=== PATIENT | female | born 1990 | race Caucasian/White ===

== ENCOUNTER 2022-07-05 20:47 | Emergency (ER) | payer MEDICAID ==
[~2022-07-05] VITALS: Ht 162.6 cm; Wt 149.7 kg
[2022-07-05] MEDS ORDERED: morphine INJ 10 MG/ML 1ML (SYR OR VIAL) IVP STA (21:10)
--- NOTE | 2022-07-05 21:11 | ED Cardiac General ---
History of Present Illness General Chief Complaint: Chest Pain Stated Complaint: CHEST TIGHTNESS Source: patient Exam Limitations: no limitations (YADIRA ARBOLEDA APRN) History of Present Illness Date Seen by Provider: Jul 05, 2022 Time Seen by Provider: 21:10 Initial Comments This is a 32-year-old female with a history of hypertension, obesity who presented to the ER with complaints of chest pressure since this morning. Recently moved to [facility] from [place] 3 weeks ago, has yet to establish with PCP. Has never felt this type of pain before. Describes as pressure in the middle of chest, no exacerbating or alleviating factors. (YADIRA ARBOLEDA APRN) Allergies and Home Medications Allergies Coded Allergies: No Known Drug Allergies (Unverified , 07/05/22) Patient Home Medication List Home Medication List Reviewed: Yes (YADIRA ARBOLEDA APRN) Famotidine (Pepcid) 20 Mg Tablet, 20 MG PO DAILY Prescribed by: YADIRA ARBOLEDA on 07/05/22 828 Review of Systems Review of Systems Constitutional: see HPI (YADIRA ARBOLEDA APRN) Past Jphrenh-Ciuxus-Zefvuj Hx Patient Social History Tobacco Use?: No Use of E-Cig and/or Vaping dev: No Substance use?: No Alcohol Use?: No (YADIRA ARBOLEDA APRN) Immunizations Up To Date Influenza Vaccine Up-to-Date: Yes; Up-to-Date First/Initial COVID19 Vaccinat: 2020 Second COVID19 Vaccination Mauro: 2020 Third COVID19 Vaccination Date: 2021 COVID19 Vaccine [employer]: MODERNA X5 (YADIRA ARBOLEDA APRN) Past Medical History Surgery/Hospitalization HX: GASTRIC BYPASS 01/2022, ESTUARDO (YADIRA ARBOLEDA APRN) Physical Exam Vital Signs Capillary Refill : Less Than 3 Seconds (YADIRA ARBOLEDA APRN) Height, Weight, BMI Height: '" Weight: lbs. oz. kg; BMI Method: General Appearance: No Apparent Distress, WD/WN HEENT: PERRL/EOMI, TMs Normal, Normal ENT Inspection, Pharynx Normal Neck: Full Range of Motion, Normal Inspection Respiratory: Lungs Clear, Normal Breath Sounds, No Accessory Muscle Use, No Respiratory Distress Cardiovascular: Regular Rate, Rhythm, No Murmur Gastrointestinal: Normal Bowel Sounds, Non Tender, Soft Rectal: Normal Exam Extremity: Normal Capillary Refill, Normal Inspection, Normal Range of Motion Neurologic/Psychiatric: Alert, Oriented x3, No Motor/Sensory Deficits, Normal Mood/Affect, acid tank liner II-XII Norm as Tested Skin: Normal Color, Warm/Dry (YADIRA ARBOLEDA APRN) Progress/Results/Core Measures Results/Orders Lab Results Laboratory Tests Test 07/05/22 20:57 Range/Units White Blood Count 6.5 4.3-11.0 10^3/uL Red Blood Count 4.45 3.80-5.11 10^6/uL Hemoglobin 13.2 11.5-16.0 g/dL Hematocrit 41 35-52 % Mean Corpuscular Volume 93 80-99 fL Mean Corpuscular Hemoglobin 30 25-34 pg Mean Corpuscular Hemoglobin Concent 32 32-36 g/dL Red Cell Distribution Width 13.9 10.0-14.5 % Platelet Count 331 130-400 10^3/uL Mean Platelet Volume 10.6 9.0-12.2 fL Immature Granulocyte % (Auto) 0 % Neutrophils (%) (Auto) 66 42-75 % Lymphocytes (%) (Auto) 24 12-44 % Monocytes (%) (Auto) 8 0-12 % Eosinophils (%) (Auto) 1 0-10 % Basophils (%) (Auto) 1 0-10 % Neutrophils # (Auto) 4.3 1.8-7.8 10^3/uL Lymphocytes # (Auto) 1.6 1.0-4.0 10^3/uL Monocytes # (Auto) 0.5 0.0-1.0 10^3/uL Eosinophils # (Auto) 0.1 0.0-0.3 10^3/uL Basophils # (Auto) 0.0 0.0-0.1 10^3/uL Immature Granulocyte # (Auto) 0.0 0.0-0.1 10^3/uL Prothrombin Time 13.5 12.2-14.7 SEC INR Comment 1.0 0.8-1.4 Activated Partial Thromboplast Time 29 24-35 SEC D-Dimer 0.79 H 0.00-0.49 UG/ML Sodium Level 143 135-145 MMOL/L Potassium Level 3.4 L 3.6-5.0 MMOL/L Chloride Level 108 H 98-107 MMOL/L Carbon Dioxide Level 25 21-32 MMOL/L Anion Gap 10 5-14 MMOL/L Blood Urea Nitrogen 10 7-18 MG/DL Creatinine 0.68 0.60-1.30 MG/DL Estimat Glomerular Filtration Rate 117 BUN/Creatinine Ratio 15 Glucose Level 98 70-105 MG/DL Calcium Level 9.2 8.5-10.1 MG/DL Corrected Calcium 9.1 8.5-10.1 MG/DL Magnesium Level 2.1 1.6-2.4 MG/DL Total Bilirubin 0.4 0.1-1.0 MG/DL Aspartate Amino Transf (AST/SGOT) 18 5-34 U/L Alanine Aminotransferase (ALT/SGPT) 19 0-55 U/L Alkaline Phosphatase 76 40-136 U/L Total Creatine Kinase 43 29-168 U/L Creatine Kinase MB 0.7 <6.6 NG/ML Myoglobin 27.8 10.0-92.0 NG/ML Troponin I < 0.028 <0.028 NG/ML B-Type Natriuretic Peptide 33.0 <100.0 PG/ML Total Protein 7.6 6.4-8.2 GM/DL Albumin 4.1 3.2-4.5 GM/DL Lipase 23 8-78 U/L (AMELIA ELENA MD) Progress Progress Note : Progress Note Labs reviewed CBC is grossly unremarkable, chemistry relatively unremarkable, noted to have a potassium of 3.4 and a chloride of 108. CK, CK-MB, myoglobin, troponin all within normal limits. BNP 33. D-dimer is somewhat elevated at 0.79. Imaging reviewed her chest x-ray is negative. CT angio ordered due to elevated D-dimer and complaints of chest pain. CT angio negative for PE, acute aortic pathology, focal infiltrate or pleural fluid. She was given GI cocktail and had almost immediate improvement of her symptoms. Discharge plan of care reviewed and she is agreeable with plan. (YADIRA ARBOLEDA [employer] WORKERS SUPERVISOR) Initial ECG Impression Date: Jul 05, 2022 Initial ECG Impression Time: 20:58 Initial ECG Rate: 61 Initial ECG Rhythm: Normal Sinus Initial ECG Intervals SA Initial ECG Impression: Nonspecific Changes (YADIRA ARBOLEDA APRN) Diagnostic Imaging Diagonstic Imaging: Xray Comments [facility], [place] NAME: EDWAR GASPAR [facility] REC#: [id number] PT STATUS: REG ER : 1990 PHYSICIAN: YADIRA ARBOLEDA [employer] WORK[employer] SUPERVISOR ADMIT DATE: 07/05/22/ER Signed Date of Exam:07/05/22 CHEST 1 VIEW, AP/PA ONLY INDICATION: Chest pain Frontal chest obtained at 09:12 p.m. The study is limited by very poor inspiration. There is no focal infiltrate, pneumothorax or pleural fluid. Heart and mediastinal silhouette are unremarkable for a portable view. IMPRESSION: Negative chest. Dictated by: Dictated on workstation # [id number] Dict: 07/05/222126 Trans: 07/05/222144 [facility] [id number] Interpreted by: DAVIAN DIAZ MD Electronically signed by: DAVIAN DIAZ MD 07/05/222144 Diagonstic Imaging: CT Comments [facility], [place] NAME: EDWAR GASPAR [facility] REC#: [id number] PT STATUS: REG ER : 1990 PHYSICIAN: YADIRA ARBOLEDA [employer] WORK[employer] SUPERVISOR ADMIT DATE: 07/05/22/ER Signed Date of Exam:07/05/22 CT ANGIO CHEST W INDICATION: Chest heaviness, elevated D-dimer, shortness of breath TECHNIQUE: Multiple contiguous axial images were obtained through the chest after uneventful bolus administration of intravenous contrast. 3D reconstructed CTA MIP acquisitions were also performed. Auto Exposure Controls were utilized during the CT exam to meet ALARA standards for radiation dose reduction. COMPARISON: There is no previous study for comparison There is thyromegaly incidentally noted. The thoracic aorta shows no evidence of aneurysm or dissection. Great vessel origins are unremarkable. The pulmonary parenchymal vessels appear well opacified with no CT evidence of pulmonary emboli. There is no mediastinal or hilar adenopathy. There are no enlarged axillary nodes or chest wall lesions. There is no pleural or pericardial fluid. Visualized portions of the upper abdomen demonstrate a small cyst in the left kidney. There are postoperative changes in the stomach. Lung parenchymal windows demonstrated no evidence of pulmonary infiltrate or nodule. IMPRESSION: No CT evidence pulmonary emboli or acute aortic pathology. No focal infiltrate or pleural fluid. Incidental thyromegaly. There are postoperative changes in the stomach. Dictated by: Dictated on workstation # [id number] Dict: 07/05/222152 Trans: 07/05/222213 [facility] [id number] Interpreted by: DAVIAN DIAZ MD Electronically signed by: DAVIAN DIAZ MD 07/05/222213 (YADIRA ARBOLEDA [employer] WORK[employer] SUPERVISOR) Departure Impression Primary Impression: Non-cardiac chest pain Disposition: HOME, SELF-CARE Condition: Improved Departure-Patient Inst. Decision time for Depature: 22:10 (YADIRA ARBOLEDA [employer] WORK[employer] SUPERVISOR) Referrals: NO,LOCAL PHYSICIAN (PCP/Family) Primary Care Physician Patient Instructions: LOCAL PHYSICIAN LIST Add. Discharge Instructions: Plan: 1. Establish with primary care provider of your choice, you have been given a list of local physicians. You can call to see if they are accepting new patients. 2. Return to the ER for any new, concerning, worsening symptoms. All discharge instructions reviewed with patient and/or family. Voiced understanding. Scripts Famotidine (Pepcid) 20 Mg Tablet 20 MG PO DAILY for 30 Days, #30 TAB 0 Refills Prov: YADIRA ARBOLEDA APRN 07/05/22 ATTENDING PHYSICIAN NOTE: I was physically present as attending physician in the emergency department during the care of this patient, but I was not directly involved in the decision making or delivery of care for this patient. (AMELIA ELENA MD) YADIRA ARBOLEDA APRN Jul 05, 2022 21:11 AMELIA ELENA MD Jul 16, 2022 06:32
[2022-07-05 21:15] LABS: BASOPHILS % (AUTO) 1 % (0-10); EOSINOPHILS # (AUTO) 0.1 10^3/uL (0.0-0.3); EOSINOPHILS % (AUTO) 1 % (0-10); HEMATOCRIT 41 % (35-52); HEMOGLOBIN 13.2 g/dL (11.5-16.0); LYMPHOCYTES # (AUTO) 1.6 10^3/uL (1.0-4.0); LYMPHOCYTES % (AUTO) 24 % (12-44); MEAN CORPUSCULAR HEMOGLOBIN 30 pg (25-34); MEAN CORPUSCULAR HGB CONC 32 g/dL (32-36); MEAN CORPUSCULAR VOLUME 93 fL (80-99); MEAN PLATELET VOLUME 10.6 fL (9.0-12.2); MONOCYTES # (AUTO) 0.5 10^3/uL (0.0-1.0); MONOCYTES % (AUTO) 8 % (0-12); NEUTROPHILS # (AUTO) 4.3 10^3/uL (1.8-7.8); NEUTROPHILS % (AUTO) 66 % (42-75); PLATELET COUNT 331 10^3/uL (130-400); WHITE BLOOD COUNT 6.5 10^3/uL (4.3-11.0)
[2022-07-05 21:21] LABS: PROTHROMBIN TIME PATIENT 13.5 SEC (12.2-14.7)
[2022-07-05 21:26] LABS: ALBUMIN 4.1 GM/DL (3.2-4.5)
[2022-07-05 21:27] LABS: POTASSIUM 3.4 MMOL/L (3.6-5.0)
[2022-07-05 21:28] LABS: CALCIUM 9.2 MG/DL (8.5-10.1)
[2022-07-05 21:29] LABS: TOTAL PROTEIN 7.6 GM/DL (6.4-8.2)
[2022-07-05 21:31] LABS: BILIRUBIN,TOTAL 0.4 MG/DL (0.1-1.0)
[2022-07-05 21:33] LABS: CREATININE SERUM 0.68 MG/DL (0.60-1.30)
--- NOTE | 2022-07-05 21:34 | Diagnostic Imaging Report ---
INDICATION: Chest pain Frontal chest obtained at 09:12 p.m. The study is limited by very poor inspiration. There is no focal infiltrate, pneumothorax or pleural fluid. Heart and mediastinal silhouette are unremarkable for a portable view. IMPRESSION: Negative chest. Dictated by: Dictated on workstation # [id number]
[2022-07-05 21:36] LABS: MAGNESIUM 2.1 MG/DL (1.6-2.4)
[2022-07-05 21:43] LABS: CREATINE KINASE MB 0.7 NG/ML (<6.6)
--- NOTE | 2022-07-05 21:58 | Diagnostic Imaging Report ---
INDICATION: Chest heaviness, elevated D-dimer, shortness of breath TECHNIQUE: Multiple contiguous axial images were obtained through the chest after uneventful bolus administration of intravenous contrast. 3D reconstructed CTA MIP acquisitions were also performed. Auto Exposure Controls were utilized during the CT exam to meet ALARA standards for radiation dose reduction. COMPARISON: There is no previous study for comparison There is thyromegaly incidentally noted. The thoracic aorta shows no evidence of aneurysm or dissection. Great vessel origins are unremarkable. The pulmonary parenchymal vessels appear well opacified with no CT evidence of pulmonary emboli. There is no mediastinal or hilar adenopathy. There are no enlarged axillary nodes or chest wall lesions. There is no pleural or pericardial fluid. Visualized portions of the upper abdomen demonstrate a small cyst in the left kidney. There are postoperative changes in the stomach. Lung parenchymal windows demonstrated no evidence of pulmonary infiltrate or nodule. IMPRESSION: No CT evidence pulmonary emboli or acute aortic pathology. No focal infiltrate or pleural fluid. Incidental thyromegaly. There are postoperative changes in the stomach. Dictated by: Dictated on workstation # [id number]
[2022-07-05] MEDS ORDERED: IOHEXOL 350 MG/ML 100 ML (OMNIPAQUE 350) VIAL IV ONE (22:00)
[2022-07-05] MEDS ORDERED: NS 100 ML (IVPB) BAG IV ONE (22:00)
[2022-07-05] MEDS ORDERED: LIDOCAINE 2% VISCOUS 15 ML UDC PO ONE (22:15)
[2022-07-05] MEDS ORDERED: ANTACID SUSP 30 ML UDC (MYLANTA) PO ONE (22:15)
[2022-07-05 22:50] VITALS: BP 125/78
[2022-07-05] MEDS ORDERED: FAMO-119 PO (22:52)
== END 2022-07-05 22:50 | disposition home or self-care (01) ==
LOC: ER 20:50
DX: R07.89 Other chest pain (principal); E66.9 Obesity, unspecified; Z68.43 Body mass index [BMI] 50.0-59.9, adult
CPT/HCPCS: 36415; 71045; 71275; 80053; 82550; 82553; 83690; 83735; 83874; 83880; 84484; 85025; 85379; 85610; 85730; 93005; 93041; 96374

== ENCOUNTER 2022-12-29 22:31 | Emergency (ER) | payer BC ==
[~2022-12-29] VITALS: Ht 162.5 cm; Wt 140.9 kg
[~2022-12-29 22:31] MED LIST: FAMO-119 PO
--- NOTE | 2022-12-29 23:17 | ED General ---
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 Had palpitations during that time. Has never occurred before. Nothing really seemed to make better or worse. Feeling closer to baseline now. No prior cardiac history. Allergies and Home Medications Allergies Coded Allergies: No Known Drug Allergies (Unverified , 07/05/22) Patient Home Medication List Home Medication List Reviewed: Yes Famotidine (Pepcid) 20 Mg Tablet, 20 MG PO DAILY Prescribed by: YADIRA ARBOLEDA on 07/05/22 298 Review of Systems Review of Systems Constitutional: No fever EENTM: no symptoms reported Respiratory: no symptoms reported Cardiovascular: see HPI Gastrointestinal: no symptoms reported Genitourinary: no symptoms reported Musculoskeletal: no symptoms reported Skin: no symptoms reported Psychiatric/Neurological: See HPI Past Ozynjdw-Qodgkb-Yloilk Hx Patient Social History Tobacco Use?: No Substance use?: No Alcohol Use?: No Immunizations Up To Date First/Initial COVID19 Vaccinat: 2020 Second COVID19 Vaccination Mauro: 2020 Third COVID19 Vaccination Date: 2021 Past Medical History Surgery/Hospitalization HX: GASTRIC BYPASS 01/2022, ESTUARDO, anxiety, htn Physical Exam Vital Signs Vital Signs - First Documented 12/29/22 23:00 Temp 35.6 Pulse 64 Resp 16 B/P (MAP) 136/75 (95) Pulse Ox 100 Capillary Refill : Less Than 3 Seconds Height, Weight, BMI Height: '" Weight: lbs. oz. kg; 53.00 BMI Method: General Appearance: No Apparent Distress, WD/WN Eyes: Bilateral Eye Normal Inspection HEENT: PERRL/EOMI, Normal ENT Inspection, Pharynx Normal Neck: Full Range of Motion, Normal Inspection, Non Tender, Supple Respiratory: Chest Non Tender, Lungs Clear, Normal Breath Sounds, No Accessory Muscle Use, No Respiratory Distress Cardiovascular: Regular Rate, Rhythm, No Edema, Normal Peripheral Pulses Gastrointestinal: Normal Bowel Sounds, Non Tender, Soft; No Distended, No Guarding Back: Normal Inspection, No CVA Tenderness Extremity: Normal Capillary Refill, Normal Inspection, Normal Range of Motion, Non Tender, No Calf Tenderness, No Pedal Edema Neurologic/Psychiatric: Alert, No Motor/Sensory Deficits, Normal Mood/Affect Skin: Normal Color, Warm/Dry Progress/Results/Core Measures Suspected Sepsis SIRS Temperature: Pulse: 64 Respiratory Rate: 16 Laboratory Tests 12/29/22 23:30: White Blood Count 9.3 Blood Pressure 136 /75 Mean: 95 Laboratory Tests 12/29/22 23:30: Creatinine 0.69, Platelet Count 308, Total Bilirubin 0.3 Results/Orders Lab Results Laboratory Tests Test 12/29/22 23:30 Range/Units White Blood Count 9.3 4.3-11.0 10^3/uL Red Blood Count 4.11 3.80-5.11 10^6/uL Hemoglobin 12.0 11.5-16.0 g/dL Hematocrit 39 35-52 % Mean Corpuscular Volume 95 80-99 fL Mean Corpuscular Hemoglobin 29 25-34 pg Mean Corpuscular Hemoglobin Concent 31 L 32-36 g/dL Red Cell Distribution Width 13.6 10.0-14.5 % Platelet Count 308 130-400 10^3/uL Mean Platelet Volume 10.3 9.0-12.2 fL Immature Granulocyte % (Auto) 0 % Neutrophils (%) (Auto) 78 H 42-75 % Lymphocytes (%) (Auto) 13 12-44 % Monocytes (%) (Auto) 8 0-12 % Eosinophils (%) (Auto) 1 0-10 % Basophils (%) (Auto) 0 0-10 % Neutrophils # (Auto) 7.2 1.8-7.8 10^3/uL Lymphocytes # (Auto) 1.2 1.0-4.0 10^3/uL Monocytes # (Auto) 0.7 0.0-1.0 10^3/uL Eosinophils # (Auto) 0.1 0.0-0.3 10^3/uL Basophils # (Auto) 0.0 0.0-0.1 10^3/uL Immature Granulocyte # (Auto) 0.0 0.0-0.1 10^3/uL Sodium Level 142 135-145 MMOL/L Potassium Level 3.7 3.6-5.0 MMOL/L Chloride Level 108 H 98-107 MMOL/L Carbon Dioxide Level 23 21-32 MMOL/L Anion Gap 11 5-14 MMOL/L Blood Urea Nitrogen 19 H 7-18 MG/DL Creatinine 0.69 0.60-1.30 MG/DL Estimat Glomerular Filtration Rate 117 BUN/Creatinine Ratio 28 Glucose Level 78 70-105 MG/DL Calcium Level 8.9 8.5-10.1 MG/DL Corrected Calcium 8.8 8.5-10.1 MG/DL Magnesium Level 2.2 1.6-2.4 MG/DL Total Bilirubin 0.3 0.1-1.0 MG/DL Aspartate Amino Transf (AST/SGOT) 17 5-34 U/L Alanine Aminotransferase (ALT/SGPT) 21 0-55 U/L Alkaline Phosphatase 101 40-136 U/L Troponin I < 0.028 <0.028 NG/ML Total Protein 7.7 6.4-8.2 GM/DL Albumin 4.1 3.2-4.5 GM/DL My Orders Orders - KARELY MALLOY MD Cbc With Automated Diff (12/29/22 23:17) Comprehensive Metabolic Panel (12/29/22 23:17) Magnesium (12/29/22 23:17) Troponin I Moca (12/29/22 23:17) Chest 1 View, Ap/Pa Only (12/29/22 23:17) Ed Iv/Invasive Line Start (12/29/22 23:17) Ekg Tracing (12/29/22 23:17) Monitor-Rhythm Ecg Trace Only (12/29/22 23:17) Vital Signs/I&O 12/29/22 23:00 Temp 35.6 Pulse 64 Resp 16 B/P (MAP) 136/75 (95) Pulse Ox 100 Capillary Refill : Less Than 3 Seconds Blood Pressure Mean: 95 Progress Note : Progress Note 32-year-old female coming in due to palpitations essentially and feeling odd earlier in the day. ABCs were intact and vitals were stable on presentation. The patient was placed on the monitor immediately, and did have frequent PVCs. She is able to feel each one of them even without looking on the monitor in the correlate 100% with the PVCs that I am visualizing. The burden is just a couple per minute, not enough to need any intervention emergently at this time. EKG ordered and interpreted by me showing no acute ischemic changes. An IV was placed and basic labs were obtained, mostly to assess her electrolytes. Potassium was 3.7 here, technically normal, but was online services manager would recommend greater than 4. She will be given 40 mill equivalents of potassium oral here. Magnesium is normal, creatinine normal, normal hemoglobin, negative troponin which is expected. Chest x-ray ordered and interpreted by me showing no pneumothorax, normal cardiac silhouette, overall appears similar to prior. Overall she is well-appearing and I believe stable for discharge with outpatient follow-up. Likely this is symptomatic PVCs. I will recommend an outpatient Holter monitor. She was sent home with strict return precautions ECG Initial ECG Impression Date: Dec 29, 2022 Initial ECG Impression Time: 23:30 Initial ECG Rate: 53 Initial ECG Rhythm: S.Iron Comment Narrow QRS, normal axis, no significant ST changes or T wave abnormality Departure Impression Primary Impression: Symptomatic PVCs Disposition: 01 HOME, SELF-CARE Condition: Stable Departure-Patient Inst. Decision time for Depature: 00:10 Referrals: [facility] (PCP/Family) Primary Care Physician Patient Instructions: Palpitations ED Add. Discharge Instructions: You are having what we call symptomatic PVCs. These are irregular heartbeats that are not technically dangerous, although they can cause the feelings that you are having earlier. We recommend following up with your regular doctor and seeing if they can get a Holter monitor which can monitor you longer-term for how many PVCs you are having in a day. If you are having quite a few in a day that are symptomatic, then I would recommend a referral to a online services manager. If you develop any severe chest pain, severe shortness of breath, or any life- threatening concerns then I would want you to come back to the ER. Work/School Note: Work Release Form Date Seen in the Emergency Department: Dec 30, 2022 Return to Work: Dec 31, 2022 Restrictions: No Restrictions KARELY MALLOY MD Dec 29, 2022 23:17
[2022-12-29 23:35] LABS: BASOPHILS % (AUTO) 0 % (0-10); EOSINOPHILS # (AUTO) 0.1 10^3/uL (0.0-0.3); EOSINOPHILS % (AUTO) 1 % (0-10); HEMATOCRIT 39 % (35-52); LYMPHOCYTES # (AUTO) 1.2 10^3/uL (1.0-4.0); LYMPHOCYTES % (AUTO) 13 % (12-44); MEAN CORPUSCULAR HEMOGLOBIN 29 pg (25-34); MEAN CORPUSCULAR HGB CONC 31 g/dL (32-36); MEAN CORPUSCULAR VOLUME 95 fL (80-99); MEAN PLATELET VOLUME 10.3 fL (9.0-12.2); MONOCYTES # (AUTO) 0.7 10^3/uL (0.0-1.0); MONOCYTES % (AUTO) 8 % (0-12); NEUTROPHILS # (AUTO) 7.2 10^3/uL (1.8-7.8); NEUTROPHILS % (AUTO) 78 % (42-75); PLATELET COUNT 308 10^3/uL (130-400); WHITE BLOOD COUNT 9.3 10^3/uL (4.3-11.0)
[2022-12-29 23:44] LABS: ALBUMIN 4.1 GM/DL (3.2-4.5); CHLORIDE 108 MMOL/L (98-107); POTASSIUM 3.7 MMOL/L (3.6-5.0); SODIUM 142 MMOL/L (135-145)
[2022-12-29 23:45] LABS: CALCIUM 8.9 MG/DL (8.5-10.1)
[2022-12-29 23:46] LABS: GLUCOSE 78 MG/DL (70-105)
[2022-12-29 23:47] LABS: TOTAL PROTEIN 7.7 GM/DL (6.4-8.2)
[2022-12-29 23:48] LABS: BILIRUBIN,TOTAL 0.3 MG/DL (0.1-1.0); CARBON DIOXIDE 23 MMOL/L (21-32)
[2022-12-29 23:50] LABS: ALKALINE PHOSPHATASE 101 U/L (40-136); CREATININE SERUM 0.69 MG/DL (0.60-1.30); GFR ESTIMATED 117
[2022-12-29 23:51] LABS: BUN/CREATININE RATIO 28
[2022-12-29 23:53] LABS: ALANINE AMINOTRANSFERASE 21 U/L (0-55); MAGNESIUM 2.2 MG/DL (1.6-2.4)
[2022-12-30 00:11] VITALS: BP 139/77
[2022-12-30] MEDS ORDERED: KCL 20 MEQ TAB (K-DUR) PO ONE (00:15)
--- NOTE | 2022-12-30 08:36 | Diagnostic Imaging Report ---
INDICATION: Shortness of breath. COMPARISON: 07/05/2022. FINDINGS: The lungs appear clear without focal airspace opacities or consolidation. There are no findings of an effusion. There is no evidence of a pneumothorax. Heart size and mediastinal contours appear appropriate. Pulmonary vascularity appears within normal limits. There is no acute or suspicious osseous abnormality demonstrated. IMPRESSION: No radiographic evidence of an acute cardiopulmonary process. Dictated by: Dictated on workstation # [id number]
== END 2022-12-30 00:13 | disposition home or self-care (01) ==
LOC: EDUNIT# 22:31 → ER 22:35
DX: I49.3 Ventricular premature depolarization (principal)
CPT/HCPCS: 36415; 71045; 80053; 83735; 84484; 85025; 93005; 93041

== ENCOUNTER 2023-03-05 22:16 | Emergency (ER) | payer BC ==
[~2023-03-05] VITALS: Ht 162 cm; Wt 136.0 kg
[2023-03-05 22:52] LABS: BASOPHILS % (AUTO) 0 % (0-10); EOSINOPHILS # (AUTO) 0.1 10^3/uL (0.0-0.3); EOSINOPHILS % (AUTO) 1 % (0-10); HEMATOCRIT 41 % (35-52); HEMOGLOBIN 12.7 g/dL (11.5-16.0); LYMPHOCYTES # (AUTO) 2.7 10^3/uL (1.0-4.0); LYMPHOCYTES % (AUTO) 29 % (12-44); MEAN CORPUSCULAR HEMOGLOBIN 29 pg (25-34); MEAN CORPUSCULAR HGB CONC 31 g/dL (32-36); MEAN CORPUSCULAR VOLUME 93 fL (80-99); MEAN PLATELET VOLUME 10.5 fL (9.0-12.2); MONOCYTES # (AUTO) 0.7 10^3/uL (0.0-1.0); MONOCYTES % (AUTO) 8 % (0-12); NEUTROPHILS # (AUTO) 5.8 10^3/uL (1.8-7.8); NEUTROPHILS % (AUTO) 62 % (42-75); PLATELET COUNT 342 10^3/uL (130-400); WHITE BLOOD COUNT 9.4 10^3/uL (4.3-11.0)
[2023-03-05 22:58] LABS: POTASSIUM 3.6 MMOL/L (3.6-5.0)
[2023-03-05 23:00] LABS: CALCIUM 8.5 MG/DL (8.5-10.1)
[2023-03-05 23:01] LABS: TOTAL PROTEIN 7.4 GM/DL (6.4-8.2)
[2023-03-05 23:03] LABS: BILIRUBIN,TOTAL 0.4 MG/DL (0.1-1.0)
[2023-03-05 23:04] LABS: CREATININE SERUM 0.59 MG/DL (0.60-1.30)
--- NOTE | 2023-03-05 23:25 | ED Abdominal Pain ---
General Chief Complaint: Abdominal/GI Problems Stated Complaint: ABD PAIN Nursing Triage Note: patient states last 20-30 min abd pain. states diarrhea earler toay. denies n/v. Source of Information: Patient History of Present Illness Date Seen by Provider: Mar 05, 2023 Time Seen by Provider: 22:40 Allergies and Home Medications Allergies Coded Allergies: No Known Drug Allergies (Unverified , 07/05/22) Patient Home Medication List Dicyclomine HCl (Dicyclomine HCl) 20 Mg Tablet, 20 MG PO Q6H Prescribed by: YENY XIONG on 03/06/23 045 Famotidine (Pepcid) 20 Mg Tablet, 20 MG PO DAILY Prescribed by: YADIRA ARBOLEDA on 07/05/222251 Ondansetron (Ondansetron Odt) 8 Mg Tab.rapdis, 8 MG PO Q6H Prescribed by: YENY XIONG on 03/06/23455 Pantoprazole Sodium (Protonix) 40 Mg Tablet.dr, 40 MG PO DAILY Prescribed by: YENY XIONG on 03/06/23455 Past Linpftn-Epflpg-Usepnf Hx Immunizations Up To Date Influenza Vaccine Up-to-Date: Yes; Up-to-Date First/Initial COVID19 Vaccinat: 2020 Second COVID19 Vaccination Mauro: 2020 Third COVID19 Vaccination Date: 2021 Past Medical History Surgery/Hospitalization HX: GASTRIC BYPASS 01/2022, ESTUARDO, anxiety, htn Physical Exam Vital Signs Vital Signs - First Documented 03/05/23 22:20 Temp 36.7 Pulse 52 Resp 18 B/P (MAP) 140/91 (107) Pulse Ox 100 O2 Delivery Room Air Capillary Refill : Less Than 3 Seconds Height/Weight/BMI Height: '" Weight: lbs. oz. kg; 51.00 BMI Method: Progress/Results/Core Measures Results/Orders Lab Results Laboratory Tests Test 03/05/23 22:40 03/05/23 23:22 Range/Units White Blood Count 9.4 4.3-11.0 10^3/uL Red Blood Count 4.38 3.80-5.11 10^6/uL Hemoglobin 12.7 11.5-16.0 g/dL Hematocrit 41 35-52 % Mean Corpuscular Volume 93 80-99 fL Mean Corpuscular Hemoglobin 29 25-34 pg Mean Corpuscular Hemoglobin Concent 31 L 32-36 g/dL Red Cell Distribution Width 13.8 10.0-14.5 % Platelet Count 342 130-400 10^3/uL Mean Platelet Volume 10.5 9.0-12.2 fL Immature Granulocyte % (Auto) 0 % Neutrophils (%) (Auto) 62 42-75 % Lymphocytes (%) (Auto) 29 12-44 % Monocytes (%) (Auto) 8 0-12 % Eosinophils (%) (Auto) 1 0-10 % Basophils (%) (Auto) 0 0-10 % Neutrophils # (Auto) 5.8 1.8-7.8 10^3/uL Lymphocytes # (Auto) 2.7 1.0-4.0 10^3/uL Monocytes # (Auto) 0.7 0.0-1.0 10^3/uL Eosinophils # (Auto) 0.1 0.0-0.3 10^3/uL Basophils # (Auto) 0.0 0.0-0.1 10^3/uL Immature Granulocyte # (Auto) 0.0 0.0-0.1 10^3/uL Sodium Level 140 135-145 MMOL/L Potassium Level 3.6 3.6-5.0 MMOL/L Chloride Level 109 H 98-107 MMOL/L Carbon Dioxide Level 20 L 21-32 MMOL/L Anion Gap 11 5-14 MMOL/L Blood Urea Nitrogen 16 7-18 MG/DL Creatinine 0.59 L 0.60-1.30 MG/DL Estimat Glomerular Filtration Rate 120 BUN/Creatinine Ratio 27 Glucose Level 126 H 70-105 MG/DL Calcium Level 8.5 8.5-10.1 MG/DL Corrected Calcium 8.5 8.5-10.1 MG/DL Magnesium Level 2.0 1.6-2.4 MG/DL Total Bilirubin 0.4 0.1-1.0 MG/DL Aspartate Amino Transf (AST/SGOT) 43 H 5-34 U/L Alanine Aminotransferase (ALT/SGPT) 25 0-55 U/L Alkaline Phosphatase 105 40-136 U/L Troponin I < 0.028 <0.028 NG/ML B-Type Natriuretic Peptide 54.0 <100.0 PG/ML Total Protein 7.4 6.4-8.2 GM/DL Albumin 4.0 3.2-4.5 GM/DL Amylase Level 43 25-125 U/L Lipase 10 8-78 U/L Serum Test, Qualitative NEGATIVE NEGATIVE Urine Color YELLOW Urine Clarity CLOUDY H Urine pH 5.5 5-9 Urine Specific [place] >=1.030 1.016-1.022 Urine Protein 1+ H NEGATIVE Urine Glucose (UA) NEGATIVE NEGATIVE Urine Ketones NEGATIVE NEGATIVE Urine Nitrite NEGATIVE NEGATIVE Urine Bilirubin 1+ H NEGATIVE Urine Urobilinogen 1.0 < = 1.0 MG/DL Urine Leukocyte Esterase NEGATIVE NEGATIVE Urine RBC (Auto) 1+ H NEGATIVE Urine RBC NONE /HPF Urine WBC 0-2 /HPF Urine Squamous Epithelial Cells 2-5 /HPF Urine Crystals PRESENT H /LPF Urine Calcium Oxalate Crystals FEW H /LPF Urine Bacteria FEW H /HPF Urine Casts NONE /LPF Urine Mucus NEGATIVE /LPF Urine Culture Indicated YES Urine Opiates Screen NEGATIVE NEGATIVE Urine Oxycodone Screen NEGATIVE NEGATIVE Urine Methadone Screen NEGATIVE NEGATIVE Urine Propoxyphene Screen NEGATIVE NEGATIVE Urine Barbiturates Screen NEGATIVE NEGATIVE Ur Tricyclic Antidepressants Screen NEGATIVE NEGATIVE Urine Phencyclidine Screen NEGATIVE NEGATIVE Urine Amphetamines Screen NEGATIVE NEGATIVE Urine Methamphetamines Screen NEGATIVE NEGATIVE Urine Benzodiazepines Screen NEGATIVE NEGATIVE Urine Cocaine Screen NEGATIVE NEGATIVE Urine Cannabinoids Screen NEGATIVE NEGATIVE My Orders Orders - YENY XIONG DO Ed Iv/Invasive Line Start (03/05/23 22:40) Urine Bedside (03/05/23 22:40) Monitor-Rhythm Ecg Trace Only (03/05/23 22:40) Amylase (03/05/23 22:40) Cbc With Automated Diff (03/05/23 22:40) Comprehensive Metabolic Panel (03/05/23 22:40) Drug Screen Stat (Urine) (03/05/23 22:40) Hcg,Qualitative Serum (03/05/23 22:40) Lipase (03/05/23 22:40) Magnesium (03/05/23 22:40) Ua Culture If Indicated (03/05/23 22:40) [facility] Chest/Noang Abd-Pelv W (03/05/23 23:23) Ekg Tracing (03/05/23 23:29) Bnp Villalba (03/05/23 23:29) Troponin I Villalba (03/05/23 23:29) Urine Culture (03/05/23 23:22) Vital Signs/I&O 9/16/23 22:20 Temp 36.7 Pulse 52 Resp 18 B/P (MAP) 140/91 (107) Pulse Ox 100 O2 Delivery Room Air Blood Pressure Mean: 107 Departure Impression Primary Impression: Abdominal pain Disposition: HOME, SELF-CARE Condition: Stable Departure-Patient Inst. Decision time for Depature: 04:54 Referrals: [facility] (PCP/Family) Primary Care Physician Patient Instructions: Abdominal Pain, Adult ED Add. Discharge Instructions: CLEAR LIQUIDS, SIPS AT A TIME--WATER, BROTH, JELLO, GATORADE WHEN YOU ARE FEELING BETTER, ADD BRATS DIET TO CLEAR LIQUIDS--BANANAS, RICE, APPLESAUCE, TOAST, SALTINES FOLLOW UP WITH YOUR DR IN 2-3 DAYS IF NO BETTER, RETURN TO ER IF SYMPTOMS WORSEN All discharge instructions reviewed with patient and/or family. Voiced under standing. Scripts Dicyclomine HCl (Dicyclomine HCl) 20 Mg Tablet 20 MG PO Q6H for Abdominal Pain, #20 TAB Prov: YENY XIONG DO 03/06/23 Ondansetron (Ondansetron Odt) 8 Mg Tab.rapdis 8 MG PO Q6H, #10 TAB Prov: YENY XIONG DO 03/06/23 Pantoprazole Sodium (Protonix) 40 Mg Tablet.dr 40 MG PO DAILY, #15 TAB Prov: YENY XIONG DO 03/06/23 Work/School Note: Work Release Form Date Seen in the Emergency Department: Mar 06, 2023 Return to Work: Mar 08, 2023 YENY XIONG DO Mar 05, 2023 23:25
[2023-03-05 23:58] LABS: AMPHETAMINE SCREEN, URINE NEGATIVE (NEGATIVE); BARBITURATE SCREEN URINE NEGATIVE (NEGATIVE); BENZODIAZEPINES SCREEN URINE NEGATIVE (NEGATIVE); CANNABINOID SCREEN, URINE NEGATIVE (NEGATIVE); COCAINE SCREEN URINE NEGATIVE (NEGATIVE); METHADONE STAT NEGATIVE (NEGATIVE); OPIATE SCREEN URINE NEGATIVE (NEGATIVE); OXYCODONE STAT NEGATIVE (NEGATIVE); PROPOXYPHENE STAT NEGATIVE (NEGATIVE); TRICYCLIC ANTIDEPRESSANTS SCRE NEGATIVE (NEGATIVE)
[2023-03-06 00:05] LABS: BILIRUBIN,URINE 1+ (NEGATIVE); CLARITY,URINE CLOUDY; COLOR,URINE YELLOW; GLUCOSE, URINE (UA) NEGATIVE (NEGATIVE); KETONES,URINE NEGATIVE (NEGATIVE); NITRITE,URINE NEGATIVE (NEGATIVE); PH,URINE 5.5 (5-9); PROTEIN,URINE 1+ (NEGATIVE)
[2023-03-06 00:06] LABS: BACTERIA,URINE FEW /HPF; CALCIUM OXALATE CRYSTALS,UR FEW /LPF; LEUKOCYTE ESTERASE ,URINE NEGATIVE (NEGATIVE); WBC,URINE 0-2 /HPF
[2023-03-06] MEDS ORDERED: PANT40TA2 PO ×2 (04:56→05:01)
[2023-03-06] MEDS ORDERED: DICY20TA PO ×2 (04:56→05:01)
[2023-03-06] MEDS ORDERED: ONDA8TAB13 PO ×2 (04:56→05:01)
[2023-03-06 05:08] VITALS: BP 143/89
--- NOTE | 2023-03-06 07:32 | Diagnostic Imaging Report ---
EXAMINATION: CT angiography of the chest, CT of the abdomen and pelvis. TECHNIQUE: Contrast enhanced thin section helical images were obtained through the chest, abdomen and pelvis with intravenous contrast timed for the optimal opacification of the arterial structures of the chest per CTA protocol. Post-processing, reconstructions and interpretation of angiographic images of the vessels was performed. 3D MIP reconstructions were performed and reviewed. All CT scans use one or more of the following dose optimizing techniques: automated exposure control, MA and/or KvP adjustment based on a patient size and exam type, or iterative reconstruction. HISTORY: Chest and abdominal pain. COMPARISON: 07/05/2022. FINDINGS: Vascular: Limited evaluation of the pulmonary arteries secondary to contrast infiltration during injection. The thoracic aorta is normal in caliber. Thyroid: Heterogeneous appearance of the thyroid gland. Mediastinum: Heart size is normal without significant pericardial effusion. No suspicious lymphadenopathy. Lungs and airways: The lungs are clear without consolidation, pleural effusion, or pneumothorax. The airways are normal. Solid organs: The liver is normal without focal lesion. The gallbladder is normal. There is no biliary ductal dilation. Pancreas is normal. Spleen is normal. Adrenal glands are normal. The kidneys are normal without hydronephrosis. Bowel: Surgical changes from gastric bypass. There is no bowel obstruction. The colon is normal. The appendix is normal. Peritoneum: There is no intraperitoneal free fluid or free air. No suspicious lymphadenopathy. Vasculature: Normal without aneurysm. Musculoskeletal: Degenerative changes of the spine without suspicious osseous lesion or compression fracture. Pelvis: The uterus and adnexa are normal. The urinary bladder is normal. IMPRESSION: 1. No acute abnormality in the chest, abdomen, or pelvis. 2. Pulmonary arteries are unable to be evaluated secondary to lack of contrast. 3. I agree with the preliminary interpretation. Dictated by: Dictated on workstation # [id number]
== END 2023-03-06 05:11 | disposition home or self-care (01) ==
LOC: EDUNIT# 22:16 → ER 22:17
DX: R10.9 Unspecified abdominal pain (principal)
CPT/HCPCS: 36415; 71275; 74177; 80053; 80306; 81000; 82150; 83690; 83735; 83880; 84484; 84703; 85025; 87088; 93005; 93041

== ENCOUNTER → 2023-04-26 | Outpatient (CLI) | payer BC ==
[~2023-04-26] MED LIST changes: +DICY20TA PO; +ONDA8TAB13 PO; +PANT40TA2 PO
--- NOTE | 2023-04-26 18:42 | Diagnostic Imaging Report ---
PROCEDURE: US Thyroid. TECHNIQUE: Multiple real-time grayscale images were obtained of the thyroid in various projections. INDICATION: Nodule seen on CT. COMPARISON: 03/05/2023. FINDINGS: Both thyroid lobes demonstrate heterogeneous background echotexture. Color flow Doppler demonstrates normal and symmetric vascularity bilaterally. The right lobe measures 6.5 cm in length, 3.4 cm AP, and 2.7 cm transverse. The left lobe measures 6.6 cm in length, 2.2 cm AP, and 3.7 cm transverse. The isthmus measures 1.1 cm. No focal nodules are identified in the thyroid. Areas of calcification are seen in the thyroid measuring up to 0.3 cm in the inferior pole of the right lobe of the thyroid. IMPRESSION: 1. Heterogeneous and enlarged thyroid without focal nodules. Recommend correlation with TSH levels and if indicated thyroid ultrasound in 6-12 months to reevaluate. Dictated by: Dictated on workstation # [id number]
== END ==
LOC: RAD 11:35
PROVIDERS: ATTEND Internal Medicine Cardiovascular Disease
DX: E04.8 Other specified nontoxic goiter (principal); I10 Essential (primary) hypertension; I25.10 Atherosclerotic heart disease of native coronary artery without angina pectoris
CPT/HCPCS: 76536

== ENCOUNTER 2023-04-27 05:23 | Outpatient (CLI) | payer BC ==
[~2023-04-27] VITALS: Ht 162.6 cm; Wt 136.4 kg
== END 2023-04-27 18:14 ==
LOC: PREOP 05:23
PROVIDERS: ATTEND Surgery
DX: Z01.818 Encounter for other preprocedural examination (principal)

== ENCOUNTER → 2023-04-28 | Outpatient (CLI) | payer BC ==
[~2023-04-28] MED LIST changes: +ACHD5005 PO; +HYDR-700 PO
== END ==
LOC: CARD 09:30
PROVIDERS: ATTEND Internal Medicine Cardiovascular Disease
DX: I11.9 Hypertensive heart disease without heart failure (principal); I34.0 Nonrheumatic mitral (valve) insufficiency; E04.1 Nontoxic single thyroid nodule
CPT/HCPCS: 93306

== ENCOUNTER 2023-05-04 09:50 | Day surgery (SDC) | payer BC ==
[2023-05-04] VITALS (11 sets, daily range): BP systolic 117–135; BP diastolic 59–71
[~2023-05-04] VITALS: Ht 162.6 cm; Wt 136.4 kg
[~2023-05-04 09:50] MED LIST changes: -ACHD5005 PO; -HYDR-700 PO
[2023-05-04] MEDS ORDERED: ceFAZolin INJECTION 3,000 MG in NS (IVPB) 100 ML 100 ML IV ONE ×4 (10:15)
[2023-05-04] MEDS ORDERED: LIDOCAINE 2% w/EPI 1:100,000 20 ML VIAL ONE (10:46)
[2023-05-04] MEDS ORDERED: HYDR-700 PO (11:15)
[2023-05-04] MEDS: LACTATED RINGERS 1,000 ML 1,000 ML IV PRN ×2 (11:17→15:57)
[2023-05-04] MEDS ORDERED: MIDAZOLAM INJ 2 MG/2 ML VIAL ONE (14:14)
[2023-05-04] MEDS ORDERED: fentaNYL INJECTION 100 MCG/2 ML VIAL ONE ×2 (14:14→15:07)
--- NOTE | 2023-05-04 14:20 | Progress Note-Pre Operative ---
Pre-Operative Progress Note Date H&P Reviewed: May 04, 2023 Time H&P Reviewed: 13:17 History & Physical: H&P Reviewed, Patient Examed, No changes noted Pre-Operative Diagnosis: Cholelithiasis/Cholecystitis KODAK SANCHEZ DO May 04, 2023 14:19
[2023-05-04] MEDS ORDERED: dexAMETHasone INJ 10 MG/ML 1 ML VIAL ONE (14:25)
[2023-05-04] MEDS ORDERED: proPOfol INJECTION 200 MG/20 ML VIAL IV ONE (14:37)
[2023-05-04] MEDS ORDERED: LIDOCAINE PF 2% 5 ML VIAL ONE (14:37)
[2023-05-04] MEDS ORDERED: LIDOCAINE 2% w/EPI 1:100,000 20 ML VIAL INJ ONE (14:54)
[2023-05-04] MEDS ORDERED: NEOSTIGMINE 1 MG/1ML 10 ML VIAL ONE (15:13)
[2023-05-04] MEDS ORDERED: GLYCOPYRROLATE INJ 0.2 MG/ML 2 ML VIAL ONE ×2 (15:13→15:14)
[2023-05-04] MEDS ORDERED: SEVOFLURANE (ULTANE) 15 ML INHAL SOLN ONE (15:14)
--- NOTE | 2023-05-04 15:21 | Progress Note-Post Operative ---
Post-Operative Progess Note Surgeon (s)/Spare Parts Clerk (s) Surgeon KODAK SANCHEZ DO Spare Parts Clerk: Terry Pre-Operative Diagnosis Cholelithiasis/Cholecystitis Post-Operative Diagnosis same Procedure & Operative Findings Date of Procedure 05/04/23 Procedure Performed/Findings PROCEDURE: Laparoscopic cholecystectomy with intraoperative cholangiogram. COMPLICATIONS: None. PROCEDURE: The patient was taken to the operating suite and was prepped and draped in sterile fashion. A surgical pause was performed. Just superior to the umbilicus, a 12 mm incision was made. Dissection was taken down to the fascia, which was then scored and grasped with a Evon and the abdomen was then entered. An 0 Vicryl suture was placed in a [id number] fashion and a Guerrero trocar was placed and secured. Pneumoperitoneum was achieved. A 5mm trochar place in the subxyphoid and 2 in the right upper quadrant. Dr. Stewart grasped the gallbladder at the fundus and elevated superiorly. He used another grasper at Naqvi's pouch to pull in the infero-lateral direction. The gallbladder was stuck to the small bowel; which usually indicates previous attacks. Carefully freed this up with blunt dissection and the cystic duct and cystic artery were then dissected out. Clip was placed on the distal portion of the cystic duct which was then partially transected. An arrow catheter was inserted into the duct. The cholangiogram was then performed; no filling defects and contrast made its way into the duodenum and up to the bifurcation. Catheter was removed and clips were placed on proximal portion of the cystic duct and then the duct was then transected. Clips were placed along the proximal and distal portion of the cystic artery which was then transected. Hook cautery was used to dissect the gallbladder from the gallbladder fossa achieving hemostasis. The gallbladder was placed in an Endobag and removed through the 12 mm trocar site. The abdomen was then reinspected. Copious amounts of irrigation were used to irrigate the abdomen and there were no signs of active bleeding. Hemostasis had been achieved. The 12 mm fascial defect was then closed with 0 Vicryl suture that had been placed in a [id number] fashion. The abdomen was then desufflated, the trocars were removed. The abdomen was then washed and dried. The skin was then closed using 4-0 Monocryl in a sub- cuticular fashion. The abdomen was washed and dried and Skin Affix was place over incisions.Patient tolerated the procedure well without any complications and was taken to the recovery room in stable condition. Dr. Stewart also helped to make incisions, advance the trocars and identify anatomy. Anesthesia Type GET Estimated Blood Loss Estimated blood loss (mL): less than 20ml Specimens/Packing Specimens Removed GB and contents KODAK SANCHEZ DO May 04, 2023 15:21
[2023-05-04] MEDS ORDERED: ACHD5005 PO (15:23)
--- NOTE | 2023-05-04 15:24 | Discharge Inst-Surgical ---
Discharge Inst-Surgical Depart Medication/Instructions New, Converted or Re-Newed RX: Transmitted to Pharmacy Patient Instructions Follow up Appt: Make appointment for 1 week. [phone] Instructions: No lifting greater than 20 pounds. No strenuous activity. May shower in 24 hours, no tub bath or soaking. Use incentive spirometer at home as directed. No Smoking Skin/Wound Care: May remove bandages in am. You need to leave the Dermabond on incision it will fall off on it's own. Symptoms to Report: Appetite Changes, Extremity Discoloration, Numbness/Tingling, Swelling Increased, Bleeding Excessive, Eyesight Changes, Pain Increased, Urine Color Change, Constipation(Persistent), Fever over 101 degree F, Pain/Pressure in chest, Urinating Difficulty, Cough Up/Vomit Blood, Heart Beat Irreg/Pounding, Pain/Pressure in jaw, Cramps in feet or legs, Lightheadedness, Pain/Pressure in shoulder, Diarrhea(Persistent), Memory Changes Suddenly, Questions/Concerns, Weight gain consecutive days, Dizziness/Fainting, Nausea/Vomiting, Shortness of Breath, Weight gain over 2 pounds If questions or concerns contact your physician Or seek help at emergency department. Activity Activity as Tolerated: Yes Activity Instructions: Avoid Stress to Incision Driving Instructions: No Driving/Refer to Diet Discharge Diet: Avoid Fatty Foods, Low Fat/Low Cholesterol Diet After 24 Hours: Clear Liquid if Nauseous If Any Problems/Questions/Issu: Contact Your Physician, Go to Emergency Room Skin/Wound Care Infection Signs and Symptoms: Increased Redness, Foul Odor of Wound, Increased Drainage, Skin Itchy or Has a Rash, Increased Swelling, Temperature Above 101 F Wound Care Comment: heating pad to shoulder or neck tonight for pain Bathing Instructions: Shower Stitches/[place]/Dermabond Dis: KODAK Valenzuela DO May 04, 2023 15:24
--- NOTE | 2023-05-04 15:29 | Anesthesia-General Post-Op ---
General Patient Condition Mental Status/LOC: Same as Preop Cardiovascular: Satisfactory Nausea/Vomiting: Absent Respiratory: Satisfactory Pain: Controlled Complications: Absent Post Op Complications Complications None Follow Up Care/Instructions Patient Instructions None needed. Anesthesia/Patient Condition Patient Condition Patient is doing well, no complaints, stable vital signs, no apparent adverse anesthesia problems. No complications reported per nursing. RICHA HORAN CRNA May 04, 2023 15:29
[2023-05-04] MEDS ORDERED: ONDANSETRON INJECTION 4 MG/2 ML (SDV) IVP PRN (15:30)
[2023-05-04] MEDS ORDERED: fentaNYL INJECTION 100 MCG/2 ML VIAL IVP ONE (15:30)
--- NOTE | 2023-05-04 17:20 | Diagnostic Imaging Report ---
INDICATION: Right upper quadrant abdominal pain. IMPRESSION: 15.3 seconds of fluoroscopy was used during cholecystectomy. No immediately performed images were stored. Cholangiogram was performed. This does not show any filling defects in the common duct. Contrast was passing into the duodenum. There is also some leaking contrast in the peritoneal space from the cystic duct remnant. Dictated by: Dictated on workstation # [id number]
[2023-05-04] MEDS ORDERED: HYDROcodone/ACETAMINOPHEN 5 MG/325 MG TABLET PO ONE (17:30)
[2023-05-04] MEDS ORDERED: HYDROcodone/ACETAMINOPHEN 5 MG/325 MG TABLET ONE (17:33)
== END 2023-05-04 17:55 | disposition home or self-care (01) ==
LOC: SDC 09:50
PROVIDERS: ATTEND Surgery
DX: K80.10 Calculus of gallbladder with chronic cholecystitis without obstruction (principal); E66.9 Obesity, unspecified; G47.33 Obstructive sleep apnea (adult) (pediatric); Z68.43 Body mass index [BMI] 50.0-59.9, adult
CPT/HCPCS: 76000; 84703; 87081; 88304